=== PATIENT | male | born 1985 | race Caucasian/White ===

== ENCOUNTER 2017-09-01 01:30 | Emergency (ER) | payer BC ==
[~2017-09-01] VITALS: Ht 170.2 cm; Wt 100.7 kg
[2017-09-01] MEDS ORDERED: TORADOL IM STA (01:38)
[2017-09-01] MEDS ORDERED: TORADOL ONE (01:43)
--- NOTE | 2017-09-01 01:43 | ER.PDOC ---
General Chief Complaint: Extremities Stated Complaint: L ANKLE PAIN Time seen by MD: 01:41 Source: patient Exam Limitations: no limitations History of Present Illness Initial Comments 31 year old white male with worsening left ankle pain since this am. No history of trauma. Progressive swelling Onset: this morning Severity: severe Context: other (none) Associated Symptoms: swelling Modifying Factors: pain on movement Allergies: Coded Allergies: No Known Allergies (Unverified , 09/01/17) Past Medical History Medical History: thyroid disease Social History Smoking: cigarettes, less than 1 pack/day Alcohol Use: occassionally Drug Use: none Review of Systems Constitutional: no symptoms reported EENTM: no symptoms reported Respiratory: no symptoms reported Cardiovascular: no symptoms reported Gastrointestinal: no symptoms reported Genitourinary: no symptoms reported Musculoskeletal: see HPI Skin: no symptoms reported Psychiatric/Neurological: no symptoms reported Physical Exam General Appearance: Alert, No Apparent Distress Foot: nml inspection Ankle: tenderness, swelling, erythema Gait: limited by pain Neuro: sensation nml, motor nml Vascular: no vascular compromise Tendons: tendon function nml Leg/Knee/Thigh: uninjured above ankle Skin: warm/dry Head/ENT: nml inspection, pharynx nml Neck/Back: nml inspection, non-tender Resp/CVS: no resp distress Abdomen: non-tender, no organomegaly Results/Orders Results/Orders Laboratory Tests Test 09/01/17 01:46 White Blood Count 15.0 10^3/uL (4.5-11.0) Red Blood Count 4.93 10^6/uL (4.50-5.90) Hemoglobin 15.5 g/dL (13.9-16.3) Hematocrit 44.3 % (37.0-53.0) Mean Corpuscular Volume 89.9 fL (78-100) Mean Corpuscular Hemoglobin 31.4 pg (26-34) Mean Corpuscular Hemoglobin Concent 35.0 g/dL (33-37) Red Cell Distribution Width 12.5 % (11.5-14.5) Platelet Count 303 10^3/uL (150-400) Mean Platelet Volume 10.5 fL (7.8-11.0) Neutrophils (%) (Auto) 80.2 % (41.0-85.0) Lymphocytes (%) (Auto) 11.3 % (24.0-44.0) Monocytes (%) (Auto) 5.5 % (5.0-12.0) Neutrophils # (Auto) 12.0 10^3/uL (1.8-7.7) Lymphocytes # (Auto) 1.7 10^3/uL (1.0-4.8) Monocytes # (Auto) 0.8 10^3/uL (0.3-0.8) Absolute Immature Granulocyte (auto 0.07 10^3 u/L (0-2) Eosinophils % 2.2 % (0.0-5.0) Basophils % 0.3 % (0.0-0.2) Basophils # 0.1 10^3/uL (0.0-0.1) Erythrocyte Sedimentation Rate 3 mm/hr (0-20) Eosinophil Count 0.3 10^3/uL (0.0-0.2) Sodium Level 141 mmol/L (132-145) Potassium Level 4.0 mmol/L (3.6-5.2) Chloride Level 103.0 mmol/L (96-109) Carbon Dioxide Level 27.9 mmol/L (20.0-32) Anion Gap 14.1 Blood Urea Nitrogen 7 mg/dL (7-18) Creatinine 1.12 mg/dL (0.59-1.40) Estimated GFR () 92.5 (>/=60) BUN/Creatinine Ratio 6.0 Glucose Level 100 mg/dL (70-110) Uric Acid 6.5 mg/dL (3.5-7.2) Calcium Level 8.3 mg/dL (8.4-10.5) Total Bilirubin 0.6 mg/dL (0.2-1.0) Aspartate Amino Transf (AST/SGOT) 25 U/L (0-35) Alanine Aminotransferase (ALT/SGPT) 58 U/L (12-78) Alkaline Phosphatase 61 U/L (50-136) C-Reactive Protein 1.75 mg/dL (0.00-5.00) Total Protein 6.9 g/dL (6.4-8.2) Albumin 3.8 g/dL (3.4-5.0) Globulin 3.1 Percent Immature Gran (Cell Imm) 0.50 % (0.00-0.50) Administered Medications Medications (Trade) Dose Ordered Sig/Samm Route PRN Reason Start Time Stop Time Status Last Admin Dose Admin Ketorolac Tromethamine (Toradol) 60 mg OT STAT IM 09/01/17 01:38 09/01/17 01:42 DC 09/01/17 01:46 Progress Progress Pain relief after Toradol shot reported ???Gout versus cellulitis Departure Time of Disposition: 03:08 Disposition: 01 HOME, SELF-CARE Impression: Primary Impression: Left ankle pain Condition: Stable Referrals: PCP,UNKNOWN (PCP) PRIMARY CARE PROVIDER Additional Instructions: Follow up PCP Maintain po intake Keflex Indomethacin Duration or Time Spent with Pa: 45 Problem Qualifiers Primary Impression: Left ankle pain Chronicity: acute Qualified Codes: M25.572 - Pain in left ankle and joints of left foot PHOENIX SULLIVAN MD Sep 01, 2017 01:43
[2017-09-01 01:50] LABS: BASOPHIL # 0.1 10^3/uL (0.0-0.1); BASOPHIL % 0.3 % (0.0-0.2); EOSINOPHIL # 0.3 10^3/uL (0.0-0.2); EOSINOPHIL % 2.2 % (0.0-5.0); HEMOGLOBIN 15.5 g/dL (13.9-16.3); LYMPHOCYTES # 1.7 10^3/uL (1.0-4.8); LYMPHOCYTES % 11.3 % (24.0-44.0); MEAN CELL HGB 31.4 pg (26-34); MEAN CORP VOLUME 89.9 fL (78-100); MEAN PLATELET VOLUME 10.5 fL (7.8-11.0); MONOCYTES # 0.8 10^3/uL (0.3-0.8); MONOCYTES % 5.5 % (5.0-12.0); NEUTROPHILS % 80.2 % (41.0-85.0); RED CELL DISTRIBUTION WIDTH 12.5 % (11.5-14.5)
[2017-09-01 02:05] LABS: CALCIUM 8.3 mg/dL (8.4-10.5); CARBON DIOXIDE 27.9 mmol/L (20.0-32)
--- NOTE | 2017-09-01 02:17 | DIREP ---
PROCEDURE:XRAY ANKLE MIN 3VWS-LT COMPARISON:None. INDICATIONS:r/o fracture, pain FINDINGS:AP, lateral, and oblique view. BONES:Normal. JOINTS:Normal. SOFT TISSUES:Marked lateral malleolar soft tissue swelling. OTHER:No additional findings. CONCLUSION:No acute visible fracture. Marked lateral malleolar soft tissue swelling. Dictated by: Olvin Luciano MD on 09/01/2017 at 02:16 AM
[2017-09-01] MEDS ORDERED: KEFLEX PO STA (03:07)
[2017-09-01] MEDS ORDERED: KEFLEX PO ONE (03:09)
[2017-09-01 03:25] VITALS: BP 131/93
== END 2017-09-01 03:20 | disposition home or self-care (01) ==
LOC: ER 01:30
DX: M25.572 Pain in left ankle and joints of left foot (principal); E07.9 Disorder of thyroid, unspecified; F17.210 Nicotine dependence, cigarettes, uncomplicated
CPT/HCPCS: 36415; 73610; 80053; 84550; 85025; 85651; 86140; 96372; 99285; J1885

== ENCOUNTER 2018-03-17 12:28 | Inpatient (IN) | payer BC ==
[~2018-03-17] VITALS: Ht 170.2 cm; Wt 103.2 kg
[2018-03-17 12:48] VITALS: BP 163/87
--- NOTE | 2018-03-17 12:49 | ER.PDOC ---
General Chief Complaint: Requesting Medical Care Stated Complaint: LEFT LEG SWOLLEN Time seen by MD: 12:44 Source: patient Exam Limitations: no limitations History of Present Illness Location: RLE, LLE Quality: painful Identified Cause: yes Allergies: Coded Allergies: No Known Allergies (Unverified , 09/01/17) Social History Drug Use: none Reviewed Nursing Reviewed: Vital Signs, Abn. Noted All Other Systems: Reviewed and Negative Physical Exam Skin: with erythema Location: LLE Character: asymmetric, erythematous With: warmth, tenderness, swelling, lymphangitis, induration Extremities: edema EENT: eyes nml inspection, lips/gums nml, pharynx nml Neck: trachea midline, no swelling Respiratory: no resp. distress, breath sounds nml CVS: reg. rate & rhythm, heart sounds nml Abdomen: non-tender, no organomegaly Rectal: non-tender NEURO/PSYCH: oriented x 3, CN's nml as tested, motor nml, sensation nml, mood/ affect nml Consult/PCP Time Consult/PCP Called: 14:00 Consult/PCP: DR AQUINO Departure Time of Disposition: 14:22 Disposition: 09 ADMITTED INPATIENT Impression: Primary Impression: Cellulitis and abscess of left leg Condition: Improved Referrals: Gisell BAUER (PCP) PRIMARY CARE PROVIDER Duration or Time Spent with Pa: 2 hrs MARIA LUZ LARA MD Mar 17, 2018 12:49
[2018-03-17] MEDS ORDERED: TORADOL IV STA (12:57)
[2018-03-17] MEDS ORDERED: VANCOMYCIN HCL 2 GM ONE (12:57)
[2018-03-17] MEDS ORDERED: MORPHINE SULFATE IV STA (12:57)
[2018-03-17] MEDS ORDERED: MORPHINE SULFATE ONE (12:58)
[2018-03-17] MEDS ORDERED: NS 500ML 500 ML IV ONE ×2 (12:58→20:58)
[2018-03-17] MEDS ORDERED: VANCOMYCIN HCL 1.5 GM in NS 250ML 300 ML IV ONE (13:00)
--- NOTE | 2018-03-17 13:01 | PCM.EKG ---
[facility] Test Date: 2018-03-17 Test Time: 13:01:18 Pat Name: NICK FOX Department: Room: Gender: M Air Tucker: DAVID : 1985 Requested By: MARIA LUZ LARA Order Number: [id number] Reading MD: Measurements Intervals [place] Rate: 92 P: 69 RI: 166 QRS: 60 QRSD: 94 T: 79 QT: 376 QTc: 464 Interpretive Statements Normal sinus rhythm Normal ECG No previous ECG available for comparison Please click the below link to view image of tracing.
[2018-03-17 13:02] LABS: BASOPHIL % 0.2 % (0.0-0.2); EOSINOPHIL # 0.1 10^3/uL (0.0-0.2); EOSINOPHIL % 0.6 % (0.0-5.0); HEMOGLOBIN 15.7 g/dL (13.9-16.3); LYMPHOCYTES # 1.4 10^3/uL (1.0-4.8); LYMPHOCYTES % 10.9 % (24.0-44.0); MEAN CELL HGB 31.5 pg (26-34); MEAN CELL HGB CONCENTRATION 34.7 g/dL (33-37); MEAN CORP VOLUME 90.6 fL (78-100); MEAN PLATELET VOLUME 9.9 fL (7.8-11.0); MONOCYTES # 0.9 10^3/uL (0.3-0.8); MONOCYTES % 6.8 % (5.0-12.0); NEUTROPHIL # 10.2 10^3/uL (1.8-7.7); NEUTROPHILS % 81.3 % (41.0-85.0); RED CELL DISTRIBUTION WIDTH 12.9 % (11.5-14.5); WHITE BLOOD CELL 12.6 10^3/uL (4.5-11.0)
--- NOTE | 2018-03-17 13:12 | NUR ---
ULTRASOUND ULTRASOUND AT BEDSIDE AT THIS TIME.
--- NOTE | 2018-03-17 13:20 | DIREP ---
PROCEDURE:CHEST 1 VIEW COMPARISON:None. INDICATIONS:chf FINDINGS: LUNGS/PLEURA:No significant pulmonary parenchymal abnormalities. No effusions. VASCULATURE:Normal. Unremarkable pulmonary vasculature. CARDIAC:Normal. No cardiac silhouette abnormality or cardiomegaly. MEDIASTINUM:Normal. No visible mass or adenopathy. BONES:Normal. No fracture or visible bony lesion. OTHER:Negative. CONCLUSION:Normal chest examination. Dictated by: Ethan Ayala M.D. on 03/17/2018 at 01:17 PM
[2018-03-17 13:30] LABS: ALANINE AMINOTRANSFERASE(ML) 42 U/L (12-78); ALKALINE PHOSPHATASE 62 U/L (50-136); ASPARTATE AMINO TRANSFERASE 25 U/L (0-35); CALCIUM 9.2 mg/dL (8.4-10.5); CARBON DIOXIDE 30.9 mmol/L (20.0-32); GLUCOSE 85 mg/dL (70-110)
[2018-03-17 13:39] VITALS: BP 161/77
--- NOTE | 2018-03-17 13:58 | NUR ---
DR KENIA LARA ON PHONE WITH DR AQUINO
--- NOTE | 2018-03-17 14:06 | DIREP ---
PROCEDURE:US DUPLEX EXTREM VEINS UNILATER/LIMITED-LT COMPARISON:None. INDICATIONS:LLE SWELLING TECHNIQUE:The left lower extremity was evaluated utilizing tim scale images with segmental compression, color Doppler, and spectral Doppler with respiratory variation and augmentation. FINDINGS: Common femoral vein:Limited assessment. Superficial femoral vein:Patent Popliteal vein:Patent Posterior tibial vein:Patent Peroneal vein:Patent Greater saphenous vein:Saphenofemoral junction not demonstrated. Waveforms: Within normal limits. Edema is identified in the left lower extremity. CONCLUSION: 1. No DVT identified in the left lower extremity. Dictated by: BARIA Physician on 03/17/2018 at 01:36 PM ld
[2018-03-17 14:24] VITALS: BP 166/82
[2018-03-17] MEDS ORDERED: TORADOL IV PRN (14:30)
--- NOTE | 2018-03-17 14:47 | NUR ---
ARRIVAL PATIENT ARRIVED ON MED-SURG UNIT AT THIS TIME TO ROOM #309. RECEIVED REPORT, ASSUMED CARE FOR PATIENT AT THIS TIME.
[2018-03-17] MEDS: ZOSYN 3.375 GRAM VIAL 3.375 GM in NS 100ML 100 ML IV SCH ×2 (15:30→21:30)
[2018-03-17] MEDS ORDERED: ZOSYN 3.375 GM/50 ML IV SCH (18:00)
[2018-03-17] MEDS ORDERED: LASIX IV STA (19:17)
[2018-03-17] MEDS ORDERED: VANCOMYCIN HCL 1 GM in NS 250ML 250 ML IV ONE (19:30)
[2018-03-17 19:36] VITALS: BP 119/81
[2018-03-17 19:37] VITALS: BP 140/81
[2018-03-17] MEDS ORDERED: ANCEF IV ONE (20:06)
[2018-03-17] MEDS ORDERED: D5W IV ONE (20:06)
[2018-03-17] MEDS ORDERED: ANCEF ONE (20:10)
[2018-03-17] MEDS: LOVENOX SQ SCH (20:10)
[2018-03-17] MEDS ORDERED: NS 100ML 100 ML IV ONE (20:10)
[2018-03-17] MEDS: ANCEF 2 GM in NS 100ML 100 ML IV SCH (20:13)
[2018-03-17] MEDS ORDERED: HYDROCHLOROTHIAZIDE ONE (20:20)
[2018-03-17 23:30] VITALS: BP 139/71
--- NOTE | 2018-03-17 23:45 | HPH ---
ADMIT DATE: 03/17/2018 CHIEF COMPLAINT: Bilateral lower extremity pain, redness and swelling. HISTORY OF PRESENT ILLNESS: This is a 32-year-old male with a past medical history of morbid obesity, who comes in today with complaints of 3 days of pain, redness and swelling of both legs. He states it started suddenly on Saturday morning and progressed to the point that the swelling was becoming rapid and causing moderate to severe pain. He states redness started approximately 36 hours ago and he has been having pain with touch as well as with walking since that time. He states this has not happened in the past, but he has had swelling of the legs in the past. He denies any recent trauma to the legs, but states he did have some trauma to his finger several days ago. PAST MEDICAL HISTORY: Morbid obesity. MEDICATIONS: Denies. ALLERGIES: No known drug allergies. PAST SURGICAL HISTORY: Denies. FAMILY HISTORY: Noncontributory. SOCIAL HISTORY: 1. Tobacco: None. 2. Alcohol: Denies recreational drug use. REVIEW OF SYSTEMS: GENERAL: No recent weakness, fatigue, malaise or fever. CARDIAC: Denies chest pain, orthopnea, PND or palpitations. RESPIRATORY: Denies cough or shortness of breath or congestion. GASTROINTESTINAL: No nausea, vomiting, diarrhea or constipation. GENITOURINARY: Denies dysuria, frequency, hematuria or nocturia. NEUROLOGIC: Denies headache, paresthesias or dizziness. OBJECTIVE: VITAL SIGNS: Blood pressure is 163/87, respirations 18, temperature 98.8, heart rate is 86, O2 sat is 97% on room air. GENERAL: This is a well-appearing male, in no acute distress. He is obese. HEENT: Atraumatic, normocephalic. NECK: Soft, supple. Normal range of motion. LUNGS: Clear to auscultation bilaterally. HEART: Regular rate and rhythm without murmurs, S3 or S4. ABDOMEN: Soft, nontender, nondistended. Positive bowel sounds. No masses felt. EXTREMITIES: Bilateral lower extremity redness, left greater than on bilateral lower legs. There are 2+ pitting edema to the knees bilaterally. There is increased warmth of the lower legs and the erythema has been as outlined with the sharpie. LABORATORY DATA: WBC 12.6, hemoglobin 15.7, hematocrit 45.2. Sodium 138, potassium 4, BUN 12, creatinine 1.2, CK 313. Venous Doppler study -- no DVT identified in the left lower extremity. ASSESSMENT: 1. Bilateral lower extremity cellulitis. 2. Bilateral leg pain and erythema. 3. Lower extremity edema. 4. Rhabdomyolysis. 5. Hypertension. 6. Obesity. PLAN: 1. This patient will be admitted to [facility] where we will start IV antibiotics in the form of Ancef and vancomycin. 2. Blood cultures are pending. 3. We will also give 1-2 doses of IV diuretic to try and improve swelling. 4. We will check CK in a.m. 5. We will start on hydrochlorothiazide for blood pressure control. 6. We will keep on Lovenox for DVT prophylaxis. Andrea Landers MD DR: PIA/khushboo JOB# [id number]
[2018-03-18] MEDS ORDERED: VANCOMYCIN HCL 1.5 GM in NS 250ML 300 ML IV SCH (01:00)
[2018-03-18] MEDS ORDERED: ANCEF ONE (01:33)
[2018-03-18] MEDS ORDERED: NS 100ML 100 ML IV ONE (01:33)
[2018-03-18] MEDS: ZOSYN 3.375 GRAM VIAL 3.375 GM in NS 100ML 100 ML IV SCH ×2 (01:49→08:45)
[2018-03-18] MEDS: ANCEF 2 GM in NS 100ML 100 ML IV SCH (03:08)
[2018-03-18 04:30] VITALS: BP 132/72
--- NOTE | 2018-03-18 06:50 | NUR ---
REPORT TO DILEEP CORBIN
[2018-03-18 08:38] VITALS: BP 143/73
[2018-03-18] MEDS: HYDROCHLOROTHIAZIDE PO SCH (08:45)
[2018-03-18] MEDS ORDERED: VANCOMYCIN HCL 1 GM in NS 250ML 250 ML IV SCH (10:30)
[2018-03-18 12:34] VITALS: BP 129/75
[2018-03-18] MEDS: ANCEF 2 GM/D5W 50ML 50 ML IV SCH ×2 (12:43→19:19)
[2018-03-18 15:57] VITALS: BP 142/76
--- NOTE | 2018-03-18 16:51 | NUR ---
PT AMBULATING IN HALLWAY WITH SUPERVISION. REPORTS DIFFICULTIES WHEN WALKING, BUT STATES "ONCE I GET TO WALKING, THE PAIN GOES AWAY AND IT IS EASIER FOR ME TO WALK". PT AMBULATED FROM ROOM TO END OF OPPOSITE HALLWAY THEN BACK TO ROOM
--- NOTE | 2018-03-18 16:51 | PRM.PN ---
Subjective Subjective Date: Mar 18, 2018 Time: 16:45 Subjective Since feeling better overall. Leg pain improving. Leg swelling much improved. He has noticed the redness is also improving. He can walk better today.. Denies fever. Patient History: FH: pancreatic cancer 32 MOTHER VTE VTE Risk Total Score: 1 VTE Risk Score VTE Risk: Score 0-1 = Low Risk (Aggressive mobilization; early ambulation; no VTE prophylaxis required) Score 2: Moderate Risk (Intermittent/Pneumatic Compression Device OR Lovenox/Heparin/Coumadin) Score 3-4: High Risk (Intermittent/Pneumatic Compression Device AND Lovenox/Heparin/Coumadin) Score > or =5: Highest Risk (Intermittent/Pneumatic Compression Device AND Lovenox/Heparin/Coumadin) Review of Systems Constitutional: No: Fever, Chills, Sweats, Weakness, Malaise, Other Respiratory: No: Cough, Dry, Shortness of breath, SOB with excertion, Wheezing , Hemoptysis, Pleuritic Pain, Sputum, Wheezing, Other Cardiovascular: No: Chest Pain, Palpitations, Orthopnea, Paroxysmal Noc. Dyspnea, Edema, Lt Headedness, Other Gastrointestinal: No: Nausea, Vomiting, Abdominal Pain, Diarrhea, Constipation , Melena, Hematochezia, Other Allergies: Coded Allergies: No Known Allergies (Unverified , 09/01/17) Objective Vitals and I/O Vital Sign - Last 24 Hours 03/17/18 03/17/18 03/17/18 03/17/18 19:10 19:36 19:37 20:11 Temp 98.1 98.6 98.1 98.6 Pulse 78 87 Resp 20 21 B/P (MAP) 119/81 (94) 140/81 (100) 140/81 Pulse Ox 94 94 O2 Delivery Room Air 03/17/18 03/18/18 03/18/18 03/18/18 23:30 04:30 08:38 08:40 Temp 99.3 98.6 98.4 99.3 98.6 98.4 Pulse 84 85 84 Resp 18 18 18 B/P (MAP) 139/71 (93) 132/72 (92) 143/73 (96) Pulse Ox 94 94 96 O2 Delivery Room Air Room Air Room Air Room Air 03/18/18 03/18/18 03/18/18 08:45 12:34 15:57 Temp 98.7 98.3 98.7 98.3 Pulse 91 88 Resp 18 19 B/P (MAP) 143/73 129/75 (93) 142/76 (98) Pulse Ox 95 93 O2 Delivery Room Air Room Air Intake and Output 03/17/18 03/17/18 03/18/18 15:01 23:01 07:01 Intake Total 220 ml 200 ml Balance 220 ml 200 ml General: Alert, Oriented X3 Lungs: Clear to auscultation, Normal air movement Heart: Regular rate, Normal S1, Normal S2 Abdomen: Normal bowel sounds, Soft Extremities: Other ( Erythema and edema bilateral lower leg but much better than yesterday.) Neuro: Normal gait, Normal speech Psych/Mental Status: Mental status NL Course Sepsis Screening Results: Posi: NEGATIVE Sepsis Qualifier/Stage: NO DEFINITE RISK Duration or Total Time Spent w: 2 hrs Vitals & review Data Vital Sign - Last 24 Hours 03/17/18 03/17/18 03/17/18 03/17/18 19:10 19:36 19:37 20:11 Temp 98.1 98.6 98.1 98.6 Pulse 78 87 Resp 20 21 B/P (MAP) 119/81 (94) 140/81 (100) 140/81 Pulse Ox 94 94 O2 Delivery Room Air 03/17/18 03/18/18 03/18/18 03/18/18 23:30 04:30 08:38 08:40 Temp 99.3 98.6 98.4 99.3 98.6 98.4 Pulse 84 85 84 Resp 18 18 18 B/P (MAP) 139/71 (93) 132/72 (92) 143/73 (96) Pulse Ox 94 94 96 O2 Delivery Room Air Room Air Room Air Room Air 03/18/18 03/18/18 03/18/18 08:45 12:34 15:57 Temp 98.7 98.3 98.7 98.3 Pulse 91 88 Resp 18 19 B/P (MAP) 143/73 129/75 (93) 142/76 (98) Pulse Ox 95 93 O2 Delivery Room Air Room Air Intake and Output 03/17/18 03/17/18 03/18/18 15:01 23:01 07:01 Intake Total 220 ml 200 ml Balance 220 ml 200 ml Laboratory Tests Test 03/17/18 12:55 03/18/18 04:45 White Blood Count 12.6 10^3/uL Red Blood Count 4.99 10^6/uL Hemoglobin 15.7 g/dL Hematocrit 45.2 % Mean Corpuscular Volume 90.6 fL Mean Corpuscular Hemoglobin 31.5 pg Mean Corpuscular Hemoglobin Concent 34.7 g/dL Red Cell Distribution Width 12.9 % Platelet Count 308 10^3/uL Mean Platelet Volume 9.9 fL Neutrophils (%) (Auto) 81.3 % Lymphocytes (%) (Auto) 10.9 % Monocytes (%) (Auto) 6.8 % Neutrophils # (Auto) 10.2 10^3/uL Lymphocytes # (Auto) 1.4 10^3/uL Monocytes # (Auto) 0.9 10^3/uL Absolute Immature Granulocyte (auto 0.03 10^3 u/L Eosinophils % 0.6 % Basophils % 0.2 % Basophils # 0.0 10^3/uL Erythrocyte Sedimentation Rate 2 mm/hr Eosinophil Count 0.1 10^3/uL Prothrombin Time 10.2 SEC Prothrombin Time INR (Non-Therap) 1.0 Activated Partial Thromboplast Time 24.6 SEC D-Dimer 0.23 mg/L Sodium Level 138 mmol/L Potassium Level 4.0 mmol/L Chloride Level 100.0 mmol/L Carbon Dioxide Level 30.9 mmol/L Anion Gap 11.1 Blood Urea Nitrogen 12 mg/dL Creatinine 1.20 mg/dL Estimated GFR () 84.9 BUN/Creatinine Ratio 10.0 Glucose Level 85 mg/dL Uric Acid 4.8 mg/dL Calcium Level 9.2 mg/dL Total Bilirubin 0.8 mg/dL Aspartate Amino Transf (AST/SGOT) 25 U/L Alanine Aminotransferase (ALT/SGPT) 42 U/L Alkaline Phosphatase 62 U/L Total Creatine Kinase 313 U/L 115 U/L Troponin I < 0.02 ng/mL C-Reactive Protein 3.36 mg/dL Pro-B-Type Natriuretic Peptide 17 pg/mL Total Protein 7.2 g/dL Albumin 4.1 g/dL Globulin 3.1 Percent Immature Gran (Cell Imm) 0.20 % Helicobacter pylori Screen NEGATIVE Current Medications Medications (Trade) Dose Ordered Sig/Samm PRN Reason Start Time Stop Time Status Last Admin Cefazolin Sodium/ Dextrose 50 ml @ 100 mls/hr Q8H 03/18/18 11:00 04/17/18 10:59 03/18/18 12:43 Enoxaparin Sodium (Lovenox) 40 mg HS 03/17/18 21:00 04/16/18 20:59 03/17/18 20:10 Hydrochlorothiazide (Hydrochlorothiazide) 25 mg DAILY 03/18/18 09:00 04/17/18 08:59 03/18/18 08:45 Ketorolac Tromethamine (Toradol) 30 mg Q6HR PRN PAIN 03/17/18 14:30 03/22/18 14:29 03/17/18 18:11 Vancomycin HCl 1 gm/Sodium Chloride 250 ml @ 175 mls/hr Q12H 03/18/18 23:00 04/17/18 22:59 Sepsis Infection Criteria Pres: Documented Infection LEVEL 1 SEPSIS INFECTION CRITE: ABX Therapy LEVEL 2-SIRS (LIST ALL THAT AP: [id number] Cardiovascular Evidence: Not Assessed or None Hematologic Evidence: None/Not assessed Hepatic Evidence: None/Not assessed Metabolic Evidence: None/Not assessed Neurological Evidence: None/Not assessed Respiratory Evidence: None/Not assessed Renal Evidence: None/Not assessed O2 Sat by Pulse Oximetry: 93 Assessment/Plan Assessment/Plan Problems: (1) Cellulitis and abscess of left leg Status: Acute Assessment & Plan: much improved from yesterday. Continue IV antibiotics and can hopefully DC tomorrow on oral antibiotics. ICD Code: L03.116 - Cellulitis of left lower limb; L02.416 - Cutaneous abscess of left lower limb SNOMED: 293787306 (2) Leg pain, bilateral Assessment & Plan: Much improved. Continue pain medications needed. ICD Code: M79.604 - Pain in right leg; M79.605 - Pain in left leg SNOMED: 95118395 (3) HTN (hypertension) Assessment & Plan: Stable for now. We'll continue to follow. ICD Code: I10 - Essential (primary) hypertension SNOMED: 97396744 (4) PVD (peripheral vascular disease) Assessment & Plan: Will likely benefit from daily low-dose aspirin usage once discharged. Continue DVT prophylaxis. ICD Code: I73.9 - Peripheral vascular disease, unspecified SNOMED: 645497349 DREW AQUINO MD Mar 18, 2018 16:51
[2018-03-18 19:10] VITALS: BP 135/84
[2018-03-18] MEDS: LOVENOX SQ SCH (20:27)
[2018-03-18] MEDS: VANCOMYCIN HCL 1 GM in NS 250ML 250 ML IV SCH (22:19)
--- NOTE | 2018-03-18 23:15 | NUR ---
pt ambulated in the [place] with family member the length of the unit x1, tolerated well
[2018-03-19] VITALS: BP 138/76
[2018-03-19] MEDS: ANCEF 2 GM/D5W 50ML 50 ML IV SCH ×2 (02:55→11:19)
--- NOTE | 2018-03-19 06:31 | NUR ---
REPORT TO ROB ESTRADA
[2018-03-19 09:39] VITALS: BP 141/89
[2018-03-19] MEDS: HYDROCHLOROTHIAZIDE PO SCH (09:41)
[2018-03-19] MEDS: VANCOMYCIN HCL 1 GM in NS 250ML 250 ML IV SCH (11:57)
[2018-03-19] MEDS ORDERED: CLIN300C8 PO (12:19)
[2018-03-19] MEDS ORDERED: TRAM50TA PO (12:19)
[2018-03-19 12:20] VITALS: BP 136/77
[2018-03-19 13:46] VITALS: BP 136/77
--- NOTE | 2018-03-19 13:46 | NUR ---
DISCHARGE PT DC AT THIS TIME. PT UNDERSTANDS ALL DC INSTRUCTIONS ALONG WITH FOLLOW UP APPOINTMENTS AND NEW PRESCRIPTIONS. PT DENIES ANY QUESTIONS OR CONCERNS AT THIS TIME. PT LEAVES FLOOR BY WHEELCHAIR TO PRIVATE VEHICLE. NO OTHER NEEDS NOTED AT THIS TIME.
--- NOTE | 2018-03-22 21:53 | DSH ---
DATE OF DISCHARGE: 03/19/2018 ADMITTING DIAGNOSES: 1. Bilateral lower extremity cellulitis. 2. Pain, redness and swelling in bilateral legs. 3. Chronic peripheral vascular disease. 4. Mild rhabdomyolysis. 5. Hypertension. DISCHARGE DIAGNOSES: 1. Bilateral lower extremity cellulitis. 2. Peripheral vascular disease. 3. Hypertension. 4. Rhabdomyolysis. DISCHARGE MEDICATIONS: 1. Clindamycin 300 mg 3 times daily for the next 7 days. 2. Resume previous home medications. DISCHARGE DISPOSITION: Home. HOSPITAL COURSE: This is a 32-year-old male who was admitted on 03/17/2018 with bilateral lower extremity pain, redness, and swelling. He was found to have significant cellulitis of bilateral lower legs to the mid lower thigh. Edema was present to that level as well. He was started on IV antibiotics, which I changed to Ancef and vancomycin. Over the next 1-2 days, his condition improved significantly and his erythema, swelling and pain improved much faster than expected. On 03/19, his vital signs were stable and his erythema had made dramatic progress. He had a mildly elevated CK of 313 on 03/17 and this returned to normal. He was able to be discharged home in stable condition on 03/19/2018 with instructions to follow up with me or his PCP within 2 weeks. Andrea Landers MD DR: PIA/khushboo JOB# [id number]
== END 2018-03-19 13:55 | disposition home or self-care (01) | DRG 872 ==
LOC: ER 12:28 → MS 14:01
PROVIDERS: ADMIT Internal Medicine; ATTEND Internal Medicine
DX: A41.9 Sepsis, unspecified organism (principal); L02.416 Cutaneous abscess of left lower limb; M62.82 Rhabdomyolysis; L03.116 Cellulitis of left lower limb; L03.115 Cellulitis of right lower limb; I73.9 Peripheral vascular disease, unspecified; E66.01 Morbid (severe) obesity due to excess calories; I10 Essential (primary) hypertension; Z68.35 Body mass index [BMI] 35.0-35.9, adult; Z80.8 Family history of malignant neoplasm of other organs or systems
CPT/HCPCS: 36415; 71045; 80053; 82550; 83880; 84484; 84550; 85025; 85027; 85379; 85610; 85651; 85730; 86140; 86677; 87040; 93005; 99285; G0378; J0690; J1650; J1885; J1940; J2270; J2543; J7040; J7050; 93971

== ENCOUNTER 2018-05-30 17:17 | Emergency (ER) | payer BC ==
[~2018-05-30] VITALS: Ht 170.2 cm; Wt 102.1 kg
[~2018-05-30 17:17] MED LIST: CLIN300C8 PO; TRAM50TA PO
[2018-05-30 18:37] VITALS: BP 157/96
--- NOTE | 2018-05-30 19:50 | NUR ---
. EYE EXAM PERFORMED BY DR. DUKES. AFTER EXAM EYE RINESED WITH NORMAL SALINE 10ML. PATIENT READY FOR DISCHARGE.
--- NOTE | 2018-05-30 19:57 | ER.PDOC ---
General Chief Complaint: Eye Problems Stated Complaint: OBJECT IN RT EYE Time seen by MD: 19:15 Source: patient Exam Limitations: no limitations History of Present Illness Initial Comments Foreign body right eye for 2 days Timing/Duration: abrupt Location: right eye Apparent Inury: No Context: foreign body Allergies: Coded Allergies: No Known Allergies (Unverified , 09/01/17) Home Meds Active Scripts Tramadol Hcl (TRAMADOL HCL) 50 Mg Tablet, 50 MG PO Q6 PRN for PAIN 5 - 7 for 14 Days, #30 TABLET Prov:DREW AQUINO MD 03/19/18 Clindamycin Hcl (CLINDAMYCIN HCL) 300 Mg Capsule, 1 CAP PO TID for cellulitis, # 21 CAP Prov:DREW AQUINO MD 03/19/18 Past Medical History Medical History: no pertinent history Surgical History: other Social History Smoking: less than 1 pack/day Alcohol Use: occassionally Drug Use: none Constitutional: no symptoms reported Eyes: see HPI Throat: no symptoms reported Respiratory: no symptoms reported Cardiovascular: no symptoms reported Gastrointestinal: no symptoms reported Musculoskeletal: no symptoms reported All Other Systems: Reviewed and Negative Physical Exam General Appearance: alert, no distress Eyelid: nml inspection Conjunctiva/Sclera: nml inspection, (R) injected Corneas: nml inspection, exam w/flurescein (R) Pupils: PERRL, nml accommodation Head/ENT: nml inspection, pharynx nml Skin Exam: Normal Color, Warm/Dry Neck/Back: nml inspection, painless ROM Resp/CVS: no resp distress, lungs clear, heart sounds nml, reg. rate & rhythm Abdomen: non-tender, no organomegaly NEURO/PSYCH: oriented X3, mood/effect nml Results/Orders Results/Orders Vital Signs Date Time Temp Pulse Resp B/P (MAP) Pulse Ox O2 Delivery O2 Flow Rate FiO2 05/30/18 18:37 97.6 87 17 157/96 (116) 98 Room Air 97.6 05/30/18 18:02 97.6 87 17 97.6 05/30/18 18:02 97.6 91 17 98 Room Air 97.6 Course Sepsis Screening Results: Posi: NEGATIVE Sepsis Qualifier/Stage: NO DEFINITE RISK Duration or Total Time Spent w: 2 hrs Vitals & review Data Vital Sign - Last 24 Hours 05/30/18 05/30/18 05/30/18 18:02 18:02 18:37 Temp 97.6 97.6 97.6 97.6 97.6 97.6 Pulse 91 87 87 Resp 17 17 17 B/P (MAP) 157/96 (116) Pulse Ox 98 98 O2 Delivery Room Air Room Air Sepsis Infection Criteria Pres: None LEVEL 1 SEPSIS INFECTION CRITE: ABX Therapy LEVEL 2-SIRS (LIST ALL THAT AP: [id number] Cardiovascular Evidence: Not Assessed or None Hematologic Evidence: None/Not assessed Hepatic Evidence: None/Not assessed Metabolic Evidence: None/Not assessed Neurological Evidence: None/Not assessed Respiratory Evidence: None/Not assessed Renal Evidence: None/Not assessed O2 Sat by Pulse Oximetry: 98 Departure Time of Disposition: 19:56 Disposition: 01 HOME, SELF-CARE Impression: Primary Impression: Foreign body in eye Condition: Stable Referrals: PCP,UNKNOWN (PCP) PRIMARY CARE PROVIDER Additional Instructions: F/U with [facility] at [facility] tomorrow if no improvement. Duration or Time Spent with Pa: 30 mins Problem Qualifiers Primary Impression: Foreign body in eye Encounter type: initial encounter Laterality: right Qualified Codes: T15.91XA - Foreign body on external eye, part unspecified, right eye, initial encounter SUNIL DUKES MD May 30, 2018 19:57
[2018-05-30 22:47] VITALS: BP 157/96
== END 2018-05-30 20:12 | disposition home or self-care (01) ==
LOC: ER 17:17
DX: T15.91XA Foreign body on external eye, part unspecified, right eye, initial encounter (principal); F17.210 Nicotine dependence, cigarettes, uncomplicated; Z79.899 Other long term (current) drug therapy; X58.XXXA Exposure to other specified factors, initial encounter; Y93.89 Activity, other specified; Y92.89 Other specified places as the place of occurrence of the external cause; Y99.8 Other external cause status
CPT/HCPCS: 99281; 99282

== ENCOUNTER 2018-11-10 04:39 | Emergency (ER) | payer BC ==
[~2018-11-10] VITALS: Ht 170.2 cm; Wt 100.3 kg
--- NOTE | 2018-11-10 04:45 | NUR ---
ARRIVAL: 32 YEAR OLD MALE AMBULATES INTO ER C/O LLE PAIN. LLE REDDENED,SWOLLEN
[2018-11-10 04:58] VITALS: BP 158/89
[2018-11-10 05:02] VITALS: BP 158/89
--- NOTE | 2018-11-10 05:14 | ER.PDOC ---
General Chief Complaint: Extremities Stated Complaint: POSS LEG INFECTION Time seen by MD: 05:12 Source: patient Exam Limitations: no limitations History of Present Illness Initial Comments one day of redness on lle, no injury, no fever, has had cellulitis previously and feels the same. Timing/Duration: 24 hours Severity: moderate Location: LLE Quality: painful Identified Cause: possibly Prior symptoms/Treatment: Similar symptoms previous Allergies: Coded Allergies: No Known Allergies (Unverified , 09/01/17) Home Meds Active Scripts Tramadol Hcl (TRAMADOL HCL) 50 Mg Tablet, 50 MG PO Q6 PRN for PAIN 5 - 7 for 14 Days, #30 TABLET Prov:DREW AQUINO MD 03/19/18 Clindamycin Hcl (CLINDAMYCIN HCL) 300 Mg Capsule, 1 CAP PO TID for cellulitis, #21 CAP Prov:DREW AQUINO MD 03/19/18 Past Medical History Medical History: other Surgical History: other LMP (females 10-50): N/A Not applicalbe Social History Smoking: less than 1 pack/day Alcohol Use: occassionally Drug Use: none Constitutional: denies chills, denies fever Respiratory: denies cough, denies shortness of breath, denies SOB with exertion Cardiovascular: denies chest pain, denies palpitations Gastrointestinal: denies abdominal pain Genitourinary: denies dysuria, denies discharge Musculoskeletal: denies back pain Psychiatric/Neurological: denies headache Physical Exam General Appearance: alert, no distress Skin: warm/dry, with erythema Location: LLE Character: erythematous With: warmth, tenderness Extremities: other EENT: eyes nml inspection, lips/gums nml Neck: trachea midline, no swelling Respiratory: no resp. distress, breath sounds nml CVS: reg. rate & rhythm, heart sounds nml Abdomen: non-tender Rectal: non-tender NEURO/PSYCH: oriented x 3, CN's nml as tested Comments patient has area of erythema on the lateral lower lle in a patch of approximately 6x8 inches not involving a joint, no joint pain good distal pulses, no crepitus or fluctuance Results/Orders Results/Orders Orders - JENIFER PAINTER MD Cbc With Auto Diff (11/10/18 05:12) Comprehensive Metabolic Panel (11/10/18 05:12) Start Iv (11/10/18 05:12) Clindamycin Phosphate/D5w (Cleocin 900 M (11/10/18 06:00) Blood Culture (11/10/18 05:12) Clindamycin Phosphate/D5w (Cleocin 600 M (11/10/18 05:36) Vital Signs Date Time Temp Pulse Resp B/P (MAP) Pulse Ox O2 Delivery O2 Flow Rate FiO2 11/10/18 05:02 98.2 96 16 11/10/18 04:58 98.2 96 16 158/89 (112) 98 Room Air 11/10/18 04:53 98.2 96 16 98 Room Air Administered Medications Medications (Trade) Dose Ordered Sig/Samm Route PRN Reason Start Time Stop Time Status Last Admin Dose Admin Clindamycin Phosphate 50 ml @ 50 mls/hr Q8 IV 11/10/18 06:00 12/10/18 05:59 UNV 11/10/18 05:55 50 MLS/HR Laboratory Tests Test 11/10/18 05:22 White Blood Count 11.2 10^3/uL (4.5-11.0) H Red Blood Count 4.84 10^6/uL (4.50-5.90) Hemoglobin 15.4 g/dL (13.9-16.3) Hematocrit 44.5 % (37.0-53.0) Mean Corpuscular Volume 91.9 fL (78-100) Mean Corpuscular Hemoglobin 31.8 pg (26-34) Mean Corpuscular Hemoglobin Concent 34.6 g/dL (33-37) Red Cell Distribution Width 13.3 % (11.5-14.5) Platelet Count 350 10^3/uL (150-400) Mean Platelet Volume 10.2 fL (7.8-11.0) Neutrophils (%) (Auto) 75.2 % (41.0-85.0) Lymphocytes (%) (Auto) 13.5 % (24.0-44.0) L Monocytes (%) (Auto) 9.3 % (5.0-12.0) Neutrophils # (Auto) 8.5 10^3/uL (1.8-7.7) H Lymphocytes # (Auto) 1.5 10^3/uL (1.0-4.8) Monocytes # (Auto) 1.0 10^3/uL (0.3-0.8) H Absolute Immature Granulocyte (auto 0.03 10^3 u/L (0-2) Immature Granulocytes % 0.30 % (0.00-0.50) Eosinophils % 1.4 % (0.0-5.0) Basophils % 0.3 % (0.0-0.2) H Basophils # 0.0 10^3/uL (0.0-0.1) Eosinophil Count 0.2 10^3/uL (0.0-0.2) Sodium Level 143 mmol/L (132-145) Potassium Level 3.2 mmol/L (3.6-5.2) L Chloride Level 102.0 mmol/L (96-109) Carbon Dioxide Level 31.4 mmol/L (20.0-32) Anion Gap 12.8 Blood Urea Nitrogen 11 mg/dL (7-18) Creatinine 1.05 mg/dL (0.59-1.40) Estimated GFR () 99.0 (>/=60) BUN/Creatinine Ratio 10.0 Glucose Level 82 mg/dL (70-110) Calcium Level 9.1 mg/dL (8.4-10.5) Total Bilirubin 0.9 mg/dL (0.2-1.0) Aspartate Amino Transferase (AST) 24 U/L (0-35) Alanine Aminotransferase (ALT) 35 U/L (12-78) Alkaline Phosphatase 75 U/L (50-136) Total Protein 7.2 g/dL (6.4-8.2) Albumin 4.0 g/dL (3.4-5.0) Globulin 3.2 Departure Time of Disposition: 05:52 Disposition: 01 HOME, SELF-CARE Impression: Primary Impression: Cellulitis Additional Impression: Hypokalemia Condition: Stable Patient Instructions: Cellulitis, Hypokalemia Referrals: SHUN BUCIO (PCP) PRIMARY CARE PROVIDER Additional Instructions: return for any worsening symptoms Duration or Time Spent with Pa: 15 Problem Qualifiers JENIFER PAINTER MD Nov 10, 2018 05:14
[2018-11-10] MEDS ORDERED: CLEOCIN 600 MG-D5W-GALAXY 100 ML IV ONE (05:36)
[2018-11-10 05:37] LABS: BASOPHIL % 0.3 % (0.0-0.2); EOSINOPHIL # 0.2 10^3/uL (0.0-0.2); EOSINOPHIL % 1.4 % (0.0-5.0); HEMOGLOBIN 15.4 g/dL (13.9-16.3); LYMPHOCYTES # 1.5 10^3/uL (1.0-4.8); LYMPHOCYTES % 13.5 % (24.0-44.0); MEAN CELL HGB 31.8 pg (26-34); MEAN CELL HGB CONCENTRATION 34.6 g/dL (33-37); MEAN CORP VOLUME 91.9 fL (78-100); MEAN PLATELET VOLUME 10.2 fL (7.8-11.0); MONOCYTES % 9.3 % (5.0-12.0); NEUTROPHIL # 8.5 10^3/uL (1.8-7.7); NEUTROPHILS % 75.2 % (41.0-85.0); RED CELL DISTRIBUTION WIDTH 13.3 % (11.5-14.5); WHITE BLOOD CELL 11.2 10^3/uL (4.5-11.0)
[2018-11-10 05:54] LABS: CALCIUM 9.1 mg/dL (8.4-10.5); CARBON DIOXIDE 31.4 mmol/L (20.0-32)
[2018-11-10 05:56] VITALS: BP 146/82
[2018-11-10] MEDS ORDERED: POTASSIUM CHLORIDE PO STA (05:56)
[2018-11-10] MEDS ORDERED: CLEOCIN 900 MG-D5W-GALAXY 50 ML IV SCH (06:00)
[2018-11-10] MEDS ORDERED: KLOR-CON 10 PO ONE (06:05)
[2018-11-10] MEDS ORDERED: POTASSIUM CHLORIDE ONE (06:07)
[2018-11-10 06:22] VITALS: BP 146/98
--- NOTE | 2018-11-10 06:23 | NUR ---
UPDATE: CLEOCIN 900 MG INFUSED. USED 2-600 MG BAGS, WASTED 300 MG/25 ML
--- NOTE | 2018-11-10 06:30 | NUR ---
UPDATE: SALINE LOCK DISCONTINUED, 22 GUAGE, TIP INTACT.
[2018-11-10 06:35] VITALS: BP 146/98
== END 2018-11-10 06:33 | disposition home or self-care (01) ==
LOC: ER 04:39
DX: L03.116 Cellulitis of left lower limb (principal); E87.6 Hypokalemia; F17.210 Nicotine dependence, cigarettes, uncomplicated; Z79.899 Other long term (current) drug therapy
CPT/HCPCS: 36415; 80053; 85025; 87040 ×2; 96365; 99285; J3490